=== PATIENT | male | born 1975 | race Caucasian/White ===

== ENCOUNTER 2022-03-28 12:03 | Emergency (ER) | payer SELFPAY ==
[2022-03-28 12:05] VITALS: BP 164/109; PULSE 86; RESP 18; TEMP 36.6; O2SAT 99; BMI 33.2
[2022-03-28] MEDS: HYDROcodone Bitartrate/Apap 5/325 Tablet PO (12:35)
[2022-03-28 12:43] VITALS: RESP 18
--- NOTE | 2022-03-28 12:43 | EDS_ITS ---
HPI History of Present Illness Chief Complaint: Burn Informant: patient Onset/Context/Timing Onset: Days (3) Context: Gradual Onset Timing: Continuous Quality: Pain, burn Location: Dorsal bilateral feet Current Severity: Severe Maximum Severity: Severe Worsened by: Palpation, walking Relieved by: Resting, topical aloe with lidocaine Narrative Narrative: Patient runs a fishing charter on [place], over the weekend he was out on the boat the entire time, he got some sun exposure, red and multiple areas, but he fell asleep with his feet exposed in the sun with his sandals on, he was in the shade however and his legs and everything else was protected from the sun during his multiple hour nap. Since then his feet have been red and sunburned and developed blisters and the pain has become worse. He denies any fevers, chills, systemic symptoms. He is developed multiple bullae, one of them ruptured and leaked, on the right foot. He is having less pain in the right foot than the left, where there are bigger bullae. PFSH PFSH Medical History no medical history no medical history Home Medications albuterol 90 mcg INHALATION PRN PRN 03/28/22 [History Last Taken Unknown] hydrocodone-acetaminophen 1 tab PO Q6H PRN PRN 3 Days #12 tablet 03/28/22 [Rx Last Taken Unknown] Allergy/AdvReac Type Severity Reaction Status Date / Time Penicillins Allergy Shortness Verified 03/28/22 12:07 of breath Family History no significant family his Surgical History no surgical history Social History Smoking Status: Current every day smoker tobacco type: cigarettes and smokeless tobacco ROS ROS ED Constitutional Constitutional ED: Denies chills or fever(s) Musculoskeletal Musculoskeletal: Reports extremity pain; Denies neck pain Integumentary Reports as per HPI and rash; Denies Abrasions or wounds Neurologic Neurologic: Denies paresthesias or weakness EXAM Physical Exam Const Vital Signs: 03/28/22 12:05 Temperature 98 F Temperature Source Temporal Pulse Rate 86 Respiratory Rate 18 Blood Pressure 164/109 H Blood Pressure Mean 127 Pulse Ox 99 Oxygen Delivery Method Room Air Positive well nourished and well developed General Appearance ED: well developed and NAD Neck full ROM and supple Back/Spine normal ROM and normal to inspection Extremity Extremity Narrative: Limited range of motion ankles due to pain in the feet, some tenderness in the lateral distal lower leg on the left, no lymphangitis no induration, no inguinal lymphadenopathy/tenderness/pain. Intact dorsalis pedis pulses bilaterally. Brisk cap refill distally all toes. No signs of necrotic tissue. Neuro oriented x3, no focal motor deficits and no sensory deficits noted Sensorium / Orientation: alert Psych mental status grossly normal and thought process normal Skin Skin Narrative: Erythema and distribution of sun exposure on both dorsal feet, sparing an area at the base of his toes where his sandals went across to his foot. There are multiple bullae, 1 of which is 4 cm in diameter left midfoot. No lymphangitis. No abscess. No signs of infection. MDM MDM MDM Narrative Medical decision making narrative: I sterilely ruptured and drained the contents of every significant bulla. The ones on the left foot were more numerous and larger than the ones on the right, and I suspect these tense bullae were more responsible for his more prominent pain there. I do not think any of this is infected, he has no open sores or lesions except for the one on the right foot where he had a spontaneously ruptured bulla that is currently nontender but in the middle of the erythematous sunburn. He was given a [place] here, we dressed all of these ruptured bullae with bacitracin and he was advised to do the same at home, and I wrote him for a prescription for some [place]. If he develops lymphangitis or other signs of actual infection, we discussed returning he is comfortable with that plan. Procedures Other Procedures Procedure(s): Bilateral foot bullae drainage/rupture with isopropanol prep Discharge Plan Triage Chief Complaint: Burn ED Provider: Tahir Landry Dx/Rx/DC Orders Clinical Impression: Sunburn, second degree Instructions: ED Burn, Second-Degree Prescriptions: New hydrocodone-acetaminophen [hydrocodone-acetaminophen] 1 TABLET tablet 1 tab PO Q6H PRN PRN (Reason: Pain) 3 Days Qty: 12 RF: 0 No Action albuterol 90 mcg/actuation Aerosol 90 mcg INHALATION PRN PRN (Reason: Shortness Of Breath) RF: 0 Referrals: Kristal Polk MD [STAFF PHYSICIAN] - 1 Week if not improving Activity Restrictions/Additional Instructions: Use ibuprofen in addition to the prescription as needed for pain, as it will help as well, topical aloe with lidocaine or benzocaine is recommended as needed to help with the sunburn itself, avoid other topicals except for ice water or ice. Keep ruptured bullae and any other open wounds covered with bacitracin or Neosporin ointment and gauze, change as needed as it gets soaked/wet/dirty. Disposition Disposition: Home, Self Care
== END 2022-03-28 12:58 | disposition home or self-care (01) ==
LOC: ED 12:53
PROVIDERS: Emergency Provider Emergency Medicine; Visit Provider Emergency Medicine
DX: L55.1 Sunburn of second degree (principal); M79.671 Pain in right foot; M79.672 Pain in left foot; F17.210 Nicotine dependence, cigarettes, uncomplicated
CPT/HCPCS: 99283